=== PATIENT | female | born 1995 | race Caucasian/White ===

== ENCOUNTER → 2016-12-18 | Day surgery (SDC) | payer OTHER ==
[~2016-12-18] VITALS: Ht 162.6 cm; Wt 56.8 kg
[~2016-12-18] MED LIST: TYLENOL WITH C1 EACH PO
--- NOTE | ~2016-12-18 | OR ---
PATIENT'S NAME: RAMANA CHÁVEZ [facility] AGE: 21 [address] ROOM: [place] [address] LOCATION: [facility] [place] ADMIT DATE: 12/18/2016 OR/Procedure Report DISCHARGE DATE: FAMILY PHYSICIAN: PHYSICIAN, DANNIELLE ATTENDING PHYSICIAN: Michael New V SURGEON: Michael New MD S[facility] PREPARER: DATE OF PROCEDURE: 12/18/2016 PREOPERATIVE DIAGNOSIS: Displaced nasal fracture. POSTOPERATIVE DIAGNOSIS: Displaced nasal fracture. OPERATION/PROCEDURE: Closed reduction, nasal fracture. ANESTHESIA: General endotracheal anesthesia. ESTIMATED BLOOD LOSS: Minimal. COMPLICATIONS: None. DESCRIPTION OF PROCEDURE: The patient was taken to the operating room and laid in supine position and underwent general endotracheal anesthesia. The patient was noted to have a [id number] deviation of her nasion. Septum was noted to be midline. The nose was decongested with Afrin solution. After appropriate topical decongestion, Bharat elevator was placed in the left nasal vestibule. The nasal fracture was reduced. Nasion was in midline. The patient tolerated the procedure well. Hemostasis was adequate. The patient was aroused, extubated, and discharged from the operating room to recovery room in satisfactory condition. MICHAEL NEW MD TVC/modl /[id number] d: 12/18/16 0804 t: 12/18/16 1213, OPERATIVE SUMMARY
== END ==
LOC: GPOC 12-14 16:00 → GSDC 06:04 → GPOC 07:00 → EDBD 16:00 → GPOC 16:00
PROC: 0NSBXZZ Reposition Nasal Bone, External Approach (ICD-10-PCS; principal; 2016-12-18)
DX: S02.2XXA Fracture of nasal bones, initial encounter for closed fracture (principal); X58.XXXA Exposure to other specified factors, initial encounter
CPT/HCPCS: A9270; J2001; J7120